=== PATIENT | female | born 1975 | race African-American/Black ===

== ENCOUNTER 2016-09-27 11:54 | Emergency (ER) | payer OTHER ==
[~2016-09-27] VITALS: Ht 157.5 cm; Wt 64.0 kg
[2016-09-27] MEDS ORDERED: QUET25TA PO (12:05)
[2016-09-27] MEDS ORDERED: FLUO10CA63 PO (12:05)
[2016-09-27] MEDS ORDERED: HYDR-523 PO (12:05)
[2016-09-27] MEDS ORDERED: HYDR25TA PO (12:05)
[2016-09-27] MEDS ORDERED: KETOROLAC 60MG/2ML VIAL IM ONE (12:30)
[2016-09-27] MEDS ORDERED: METHOCARBAMOL 500MG TABLET PO ONE (12:30)
[2016-09-27 13:30] VITALS: BP 158/117
== END 2016-09-27 13:46 | disposition home or self-care (01) ==
LOC: ER 12:25
DX: G89.29 Other chronic pain (principal); M54.9 Dorsalgia, unspecified; I10 Essential (primary) hypertension; F17.200 Nicotine dependence, unspecified, uncomplicated
CPT/HCPCS: 96372; 99283; J1885; Z7610

== ENCOUNTER 2018-05-30 21:03 | Emergency (ER) | payer MEDICAID, OTHER ==
[~2018-05-30] VITALS: Ht 165.1 cm; Wt 73.0 kg
[~2018-05-30 21:03] MED LIST: FLUO10CA25 PO; HYDR-523 PO; HYDR25TA PO; QUET25TA PO
[2018-05-30] MEDS ORDERED: KETOROLAC 30MG/ML VIAL IV STA (23:48)
[2018-05-31 00:14] LABS: BASOPHILS % 0.7 % (0.0-2.0); EOSINOPHILS % 5.8 % (0.0-5.0); HEMATOCRIT. 38.3 % (36.0-48.0); HEMOGLOBIN. 12.6 g/dL (12.0-16.0); LYMPHOCYTES % 34.6 % (20.0-50.0); MEAN CORPUSCULAR HEMOGLOBIN 28.9 pg (28.0-32.0); MEAN CORPUSCULAR VOLUME 87.6 fL (81.0-99.0); MEAN PLATELET VOLUME 9.9 fl (7.4-10.4); MONOCYTES % 6.8 % (2.0-8.0); NEUTROPHILS % 52.1 % (40.0-76.0); PLATELET 147 x1000/uL (130-400); RED BLOOD CELL COUNT 4.37 mill/uL (4.2-5.4); RED CELL DISTRIBUTION WIDTH 14.8 % (11.6-14.6)
[2018-05-31 00:19] LABS: CHLORIDE 108 mEq/L (98-107)
[2018-05-31 03:14] VITALS: BP 122/90
== END 2018-05-31 03:14 | disposition home or self-care (01) ==
LOC: ER 21:32
DX: O26.899 Other specified pregnancy related conditions, unspecified trimester (principal); M94.0 Chondrocostal junction syndrome [Tietze]; Z3A.00 Weeks of gestation of pregnancy not specified
CPT/HCPCS: 36415; 80053; 81025; 84484; 85025; 85379; 93005; 96374; 99284; J1885; Z7610

== ENCOUNTER 2023-04-28 13:48 | Emergency (ER) | payer MEDICAID ==
[~2023-04-28] VITALS: Ht 165.1 cm; Wt 75.0 kg
[2023-04-28 13:51] VITALS: O2SAT 100
[2023-04-28] MEDS ORDERED: DIPH25CA83 MT (14:57)
[2023-04-28] MEDS: PREDNISONE 20MG TABLET PO ONE (15:00)
[2023-04-28] MEDS: DIPHENHYDRAMINE 25MG CAPSULE PO ONE (15:00)
[2023-04-28] MEDS: FAMOTIDINE 20MG TABLET PO ONE (15:00)
[2023-04-28 15:45] VITALS: TEMP 97.7
[2023-04-28 16:22] LABS: *AMPHETAMINES SCREEN URINE PRESUMPTIVE POSITIVE (NEGATIVE); *BARBITURATES SCREEN URINE NEGATIVE (NEGATIVE); *BENZODIAZEPINES SCREEN URINE NEGATIVE (NEGATIVE); *COCAINE SCREEN URINE NEGATIVE (NEGATIVE); CANNABINOID URINE SCREEN PRESUMPTIVE POSITIVE (NEGATIVE); ECSTASY MDMA SCREEN URINE CONF.TEST INDICATED (NEGATIVE); METHADONE URINE SCREEN Neg (NEGATIVE); OPIATES URINE SCREEN PRESUMPTIVE POSITIVE (NEGATIVE); PHENCYCLIDINE URINE SCREEN NEGATIVE (NEGATIVE)
[2023-04-28] MEDS: SODIUM CHLORIDE 0.9% 1,000 ML IV ONE (16:23)
[2023-04-28 16:42] LABS: BASOPHILS % 0.7 % (0.0-2.0); DIFFERENTIAL COMMENT 0; EOSINOPHILS % 0.7 % (0.0-5.0); HEMATOCRIT. 38.9 % (36.0-48.0); HEMOGLOBIN. 12.8 g/dL (12.0-16.0); LYMPHOCYTES % 33.7 % (20.0-50.0); MEAN CORPUSCULAR HEMOGLOBIN 26.5 pg (28.0-32.0); MEAN CORPUSCULAR HGB CONC 32.9 g/dL (31.0-37.0); MEAN CORPUSCULAR VOLUME 80.6 fL (81.0-99.0); MEAN PLATELET VOLUME 10.5 fl (7.4-10.4); MONOCYTES % 9.5 % (2.0-8.0); NEUTROPHILS % 55.4 % (40.0-76.0); PLATELET 203 x1000/uL (130-400); RED BLOOD CELL COUNT 4.83 mill/uL (4.2-5.4); RED CELL DISTRIBUTION WIDTH 15.6 % (11.6-14.6); WHITE BLOOD COUNT 9.5 x1000/uL (4.5-11.0)
[2023-04-28 17:01] LABS: ALANINE AMINOTRANSFERASE 15 IU/L (10-49); ASPARTATE AMINOTRANSFERASE 30 IU/L (<34); BILIRUBIN TOTAL 0.6 mg/dL (0.1-1.0); CALCIUM 9.4 mg/dL (8.7-10.4); CARBON DIOXIDE 24 mEq/L (21-32); CHLORIDE 106 mEq/L (98-107); CREATININE 1.6 mg/dL (0.6-1.0); GLUCOSE 92 mg/dL (70-105); PROTEIN TOTAL 8.5 g/dL (6.0-8.3); SODIUM 139 mEq/L (136-145); UREA NITROGEN BLOOD 17 mg/dL (9-23)
[2023-04-28 17:06] LABS: ETHANOL BLOOD < 10 mg/dL (<10)
[2023-04-28] MEDS: POTASSIUM CHLORIDE 20MEQ/PACKET PO ONE (17:41)
[2023-04-28 17:52] VITALS: BP 148/99; PULSE 105; RESP 16
== END 2023-04-28 18:04 | disposition home or self-care (01) ==
LOC: ER 13:48
DX: F19.10 Other psychoactive substance abuse, uncomplicated (principal); E87.6 Hypokalemia; F41.9 Anxiety disorder, unspecified; K21.9 Gastro-esophageal reflux disease without esophagitis; I10 Essential (primary) hypertension; Z86.73 Personal history of transient ischemic attack (TIA), and cerebral infarction without residual deficits
CPT/HCPCS: 80053; 80305; 81025; 80320; 85025; 36415; 96360; 99284; Q0163; J7512; J7030; Z7610; G0480

== ENCOUNTER 2024-02-21 13:54 | Emergency (ER) | payer MEDICAID, OTHER ==
[~2024-02-21] VITALS: Ht 160 cm; Wt 66.0 kg
[~2024-02-21 13:54] MED LIST changes: +DIPH25CA83 MT
[2024-02-21 13:57] VITALS: TEMP 98.4; O2SAT 100
[2024-02-21 14:03] VITALS: O2SAT 99
[2024-02-21 15:33] VITALS: BP 140/103; PULSE 115; RESP 16
[2024-02-21] MEDS: KETOROLAC 30MG/ML VIAL IM ONE (15:33)
[2024-02-21] MEDS: HYDROCODONE/ACETAMINOPHEN 5/325MG TABLET PO ONE (15:33)
[2024-02-21] MEDS ORDERED: CYCL5TAB3 MT (19:15)
[2024-02-21] MEDS ORDERED: LIDO700A15 TP (19:15)
[2024-02-21] MEDS ORDERED: TOPUD MT (19:15)
== END 2024-02-21 19:11 | disposition home or self-care (01) ==
LOC: ER 13:54
DX: S16.1XXA Strain of muscle, fascia and tendon at neck level, initial encounter (principal); K21.9 Gastro-esophageal reflux disease without esophagitis; I10 Essential (primary) hypertension; F41.9 Anxiety disorder, unspecified; Z86.73 Personal history of transient ischemic attack (TIA), and cerebral infarction without residual deficits; V89.2XXA Person injured in unspecified motor-vehicle accident, traffic, initial encounter; Y93.89 Activity, other specified; Y92.410 Unspecified street and highway as the place of occurrence of the external cause; Y99.8 Other external cause status
CPT/HCPCS: 99285; 72125; 81025; 96372; J1885; 99284